=== PATIENT | male | born 1985 | race African-American/Black ===

== ENCOUNTER 2017-11-16 18:26 | Emergency (ER) | payer BC ==
[2017-11-16] MEDS ORDERED: LIDOCAINE 4%/TETRACAINE 0.5%/EPI 0.18% 5 ML TOPICAL SOLN TOP ONE (19:58)
--- NOTE | 2017-11-16 20:04 | ER Document Report ---
ED Hand/Wrist Injury - General Chief Complaint: Hand Swelling Stated Complaint: POSSIBLE INFECTED FINGER Time Seen by Provider: 11/16/17 19:53 Mode of Arrival: Ambulatory Information source: Patient Notes: 32-year-old male presents to ED for complaint of paronychia right first finger. He states he had a hangnail and changed his old and then it gradually became more more inflamed and sore. He is alert and oriented respirations regular and unlabored speaking in full sentences walking with a even steady gait. TRAVEL OUTSIDE OF THE [place] IN LAST 30 DAYS: No - HPI Injury to: Index finger Onset: Last week Where: Home Quality of pain: Pressure, Sharp Severity: Moderate Pain Level: 2 Context: Other - Paronychia due to a hangnail and he did not keep it clean. - Related Data Allergies/Adverse Reactions: No Known Allergies Allergy (Unverified 11/16/17 20:40) Past Medical History - General Information source: Patient - Social History Smoking Status: Never Smoker Cigarette use (# per day): No Chew tobacco use (# tins/day): No Smoking Education Provided: No Frequency of alcohol use: Heavy Occupation: Counselor mental health patient Lives with: Family Family History: Reviewed & Not Pertinent Patient has suicidal ideation: No Patient has homicidal ideation: No - Medical History Medical History: Other - Past Medical History Cardiac Medical History: Reports: None Pulmonary Medical History: Reports: None EENT Medical History: Reports: None Neurological Medical History: Reports: None Endocrine Medical History: Reports: None Renal/ Medical History: Reports: None Malignancy Medical History: Reports None GI Medical History: Reports: None Musculoskeletal Medical History: Reports None Skin Medical History: Reports None Psychiatric Medical History: Reports: None Traumatic Medical History: Reports: None Infectious Medical History: Reports: None Surgical Hx: Negative Past Surgical History: Reports: None - Immunizations Immunizations up to date: Yes Hx Diphtheria, Pertussis, Tetanus Vaccination: Yes Review of Systems - Review of Systems Constitutional: No symptoms reported EENT: No symptoms reported Cardiovascular: No symptoms reported Respiratory: No symptoms reported Gastrointestinal: No symptoms reported Genitourinary: No symptoms reported Male Genitourinary: No symptoms reported Musculoskeletal: No symptoms reported Skin: Other - Paronychia right index finger Hematologic/Lymphatic: No symptoms reported Neurological/Psychological: No symptoms reported -: Yes All other systems reviewed and negative Physical Exam - Vital signs Vitals: Temp Pulse Resp BP Pulse Ox 98.9 F 76 16 149/89 H 95 11/16/17 18:44 11/16/17 18:44 11/16/17 18:44 11/16/17 18:44 11/16/17 18:44 Interpretation: Normal - General General appearance: Appears well, Alert - HEENT Head: Normocephalic, Atraumatic Eyes: Normal Pupils: PERRL - Respiratory Respiratory status: No respiratory distress Chest status: Nontender Breath sounds: Normal Chest palpation: Normal - Cardiovascular Rhythm: Regular Heart sounds: Normal auscultation Murmur: No - Abdominal Inspection: Normal Distension: No distension Bowel sounds: Normal Tenderness: Nontender Organomegaly: No organomegaly - Back Back: Normal, Nontender - Extremities General upper extremity: Normal color, Normal ROM, Normal temperature General lower extremity: Normal inspection, Nontender, Normal color, Normal ROM , Normal temperature, Normal weight bearing. No: Norah's sign Hand: Tender, No evidence of human bite, No evidence of FB, Swelling, Other - Paronychia right index finger - Neurological Neuro grossly intact: Yes Cognition: Normal Orientation: AAOx4 [place] Coma Scale Eye Opening: Spontaneous [place] Coma Scale Verbal: Oriented [place] Coma Scale Motor: Obeys Commands [place] Coma Scale Total: 15 Speech: Normal Motor strength normal: LUE, RUE, LLE, RLE Sensory: Normal - Psychological Associated symptoms: Normal affect, Normal mood - Skin Skin Temperature: Warm Skin Moisture: Dry Skin Color: Normal Course - Re-evaluation Re-evalutation: 11/17/17 02:12 Patient's paronychia was I&D and with the 11 blade. The nail had a hole draining the pus under the nail with a cautery tool. Patient tolerated procedure well. Patient was instructed on care of paronychia to prevent reinfection. Patient was discharged home with prescription for Keflex. Patient instructed to soak hand with soap and warm water until he can get Epson salt to soak his hand. Patient to follow-up with the primary doctor or emergency room for any increase in symptoms. - Vital Signs Vital signs: Temp Pulse Resp BP Pulse Ox 98.8 F 66 14 150/86 H 98 11/16/17 21:49 11/16/17 21:49 11/16/17 21:49 11/16/17 21:49 11/16/17 21:49 Procedures - Incision and Drainage Right Finger 2nd digit Time completed: 21:30 Type: Simple - paronychia Anesthetic type: Other - l.e.t. mL's of anesthetic: 5 - l.e.t Blade size: 11 I&D procedure: Shurclens applied Incision Method: Incision made by scalpel Amount/type of drainage: moderate amount of purulent Discharge - Discharge Clinical Impression: Paronychia of right index finger Condition: Stable Disposition: HOME, SELF-CARE Instructions: Family Physicians / Practices Additional Instructions: Paronychia You have an infection between the nail and the surrounding skin, called a paronychia. The germs infect the area after a minor skin injury, such as a hangnail. This infection is treated by releasing the pus. This is usually done by the skin from the nail. If the infection has spread underneath the nail, partial removal of the nail may be necessary. Hot-soak the area three or four times daily. Antibiotics are often given, but are not always necessary. Healing takes about a week. If pain or swelling becomes severe or if you develop fever or chills, call the doctor or return for re-examination. Cephalexin The antibiotic you've been prescribed is a member of the cephalosporin class. This type of antibiotic covers a wide variety of infections, including those of the skin, lungs, and urinary tract. It's useful for staph infections. This antibiotic is slightly similar to the penicillin family. In rare cases , a person who is allergic to penicillin will also be allergic to this medication. If you have had a severe allergic reaction to penicillin, and have not taken this antibiotic since that time, notify your doctor. Antibiotics which cover many germs ("broad spectrum" antibiotics) are more likely to cause diarrhea or "yeast" infections. Women prone to vaginal yeast problems may suffer an attack after taking this antibiotic. In infants, oral thrush (white spots "stuck" on the cheek) or yeast diaper rash may result. See your doctor if these problems occur. Call at once if you develop itching, hives , shortness of breath, or lightheadedness. Epsom Salt Soaks Soak the wound area in a container of warm epsom salt water. If you can't get the wound area into a bucket or peterson, use a folded towel soaked in the epsom salt solution and apply to the area. Use clean hot tap water (about the temperature of a very warm bath), mixing in about one (1) teaspoon for every pint of water. Two gallon --> 16 teaspoons Epsom Salts One gallon --> 8 teaspoons Epsom Salts Two quarts --> 4 teaspoons Epsom Salts One quart --> 2 teaspoons Epsom Salts Soak the wound for about 20 minutes while gently moving it around in the water. Repeat this four (4) times a day. FOLLOW-UP CARE: If you have been referred to a physician for follow-up care, call the physician s office for an appointment as you were instructed or within the next two days. If you experience worsening or a significant change in your symptoms, notify the physician immediately or return to the Emergency Department at any time for re-evaluation. Prescriptions: Cephalexin Monohydrate [Keflex 500 mg Capsule] 500 mg PO Q6H 5 Days capsule Forms: Elevated Blood Pressure
[2017-11-16] MEDS ORDERED: CEPHALEXIN 500 MG CAPSULE PO ONE (21:29)
[2017-11-16 21:50] VITALS: BP 150/86
== END 2017-11-16 21:50 | disposition home or self-care (01) ==
LOC: ER 18:26
PROC: 0H9QXZZ Drainage of Finger Nail, External Approach (ICD-10-PCS; principal; 2017-11-16)
DX: L03.011 Cellulitis of right finger (principal)
CPT/HCPCS: 99283; 10060; J3490